=== PATIENT | female | born 1940 | race Caucasian/White ===

== ENCOUNTER 2017-09-13 19:03 | Emergency (ER) | payer BC ==
[~2017-09-13] VITALS: Ht 165.1 cm; Wt 66.2 kg
[2017-09-13 19:37] VITALS: BP 171/70; PULSE 112; RESP 20; TEMP 97.6; O2SAT 98
[2017-09-13] MEDS ORDERED: METF500T PO (20:23)
[2017-09-13] MEDS ORDERED: ATOR10TA15 PO (20:23)
[2017-09-13 20:31] VITALS: BP 146/66; PULSE 102; RESP 18; O2SAT 96
--- NOTE | 2017-09-13 20:41 | PD ---
HPI Chief Complaint: Fall Time Seen by Provider: 20:04 Travel History International Travel<30 days: No Contact w/Intl Traveler<30days: No Traveled to known affect area: No History of Present Illness HPI 76yo F with HLD and DM here with c/o right forehead pain, right wrist pain, right middle finger pain and right knee pain s/p mechanical fall about 1.5 hours ago. Said she tripped on the concrete step and hit her head face first. Denies any LOC or anticoagulation. Denies any dizziness, chest pain, sob, n/v, abdominal pain, focal weakness or numbness. PFSH Past Medical History High Cholesterol: Yes Diabetes: Yes Patient Takes Glucophage: No Tetanus Vaccination: Unknown Influenza Vaccination: Yes ?: Not Menopausal: Yes Past Surgical History Appendectomy: Yes Social History Alcohol Use: No Tobacco Use: Yes (1ppd) Substance Use: No Allergies-Medications (Allergen,Severity, Reaction): Coded Allergies: epinephrine (Verified Allergy, Severe, Tachycardia, 09/13/17) Patient states it makes her heart race and flutter Reported Meds & Prescriptions Reported Meds & Active Scripts Active Tylenol (Acetaminophen) 325 Mg Tab 325 Mg PO Q4H PRN Reported Metformin (Metformin HCl) 500 Mg Tab 500 Mg PO BIDPC Atorvastatin (Atorvastatin Calcium) 10 Mg Tab 10 Mg PO HS Review of Systems Except as stated in HPI: all other systems reviewed are Neg Physical Exam Narrative GENERAL: 76yo F in mild distress. SKIN: Focused skin assessment warm/dry. HEAD: +Right forehead, periorbital swelling. +Abrasion right forehead. No active bleeding or laceration to repair. EYES: Pupils equal and round and reactive to light bilaterally. EOMI. ENT: No septal hematoma or hemotympanum. NECK: No midline cervical spine ttp. CARDIOVASCULAR: Regular rate and rhythm. No murmur appreciated. RESPIRATORY: No accessory muscle use. Clear to auscultation. Breath sounds equal bilaterally. GASTROINTESTINAL: Abdomen soft, non-tender, nondistended. MUSCULOSKELETAL: Right wrist: Mild ttp distal radius. Radial pulse intact. FROM in all digits. Mild swelling in 3rd proximal phalanges, there is a ring she cant take off. RLE: +Abrasion in right knee with some ttp. Distal pulses intact. Sensation intact. NEUROLOGICAL: Awake and alert. No obvious cranial nerve deficits. Motor grossly within normal limits. Normal speech. PSYCHIATRIC: Appropriate mood and affect; insight and judgment normal. Data Data Last Documented VS Vital Signs Date Time Temp Pulse Resp B/P (MAP) Pulse Ox O2 Delivery O2 Flow Rate FiO2 09/13/17 20:31 102 18 146/66 (92) 96 Room Air 09/13/17 19:[address] Brain W/O Iv Contrast(Rout) (09/13/17 ) Ct Cerv Spine W/O Contrast (09/13/17 ) Wrist, Limited (Ap&Lat) (09/13/17 ) Hand, Limited (2vws) (09/13/17 ) Knee, Ltd (1 Or 2vws) (09/13/17 ) Acetaminophen (Tylenol) (09/13/17 20:45) Tetanus/Diphtheria Tox Adult (Tetanus/Di (09/13/17 20:45) Ed Discharge Order (09/13/17 22:52) [facility] Medical Decision Making Medical Screen Exam Complete: Yes Emergency Medical Condition: Yes Differential Diagnosis ICH vs. contusion vs. fracture Narrative Course 76yo F here for evaluation after mechanical fall today. She tripped over the concrete step and denies any dizziness, chest pain or sob. Had no LOC. GCS has been 15. Not on any anticoagulation. No focal neurologic deficits. Does have hematoma in right forehead. CT cervical spine showed no acute disease. Xray right hand showed chronic degenerative change of lateral mid carpal row. Soft tissue swelling at third PIP joint region. CT brain showed no acute intracranial abnormalities. Right periorbital soft tissue swelling. Xray right knee showed minimal narrowing of medial joint space. No fracture. Xray right wrist showed chronic degenerative change at the lateral mid carpal region. Right wrist splint placed for comfort. Pt given acetaminophen which helped with pain. Tetanus updated. Return precautions given. Diagnosis Primary Impression: Head injury Qualified Codes: S09.90XA - Unspecified injury of head, initial encounter Patient Instructions: General Instructions Departure Forms: Tests/Procedures Additional Instructions: Please follow up with your primary care physician in 2-3 days. Return to the ED if you have worsening headache, vomiting, weakness or numbness or other concerning symptoms. Med/Other Pt SpecificInfo: Prescription(s) given Scripts Acetaminophen (Tylenol) 325 Mg Tab 325 MG PO Q4H Y for PAIN SCALE 1 TO 4, #20 TAB 0 Refills Prov: Louise Figueroa DO 09/13/17 Disposition: 01 DISCHARGE HOME Condition: Stable Louise Figueroa DO Sep 13, 2017 20:41
[2017-09-13] MEDS ORDERED: TETANUS/DIPHTHERIA TOXOID ADULT 0.5 ML VIAL IM ONE (20:45)
[2017-09-13] MEDS ORDERED: ACETAMINOPHEN 325 MG TAB PO ONE (20:45)
--- NOTE | 2017-09-13 22:09 | RADRPT ---
EXAM DATE/TIME: 09/13/2017 20:54 [facility] COMPARISON: No previous studies available for comparison. INDICATIONS : Trauma, fall. Right wrist pain. MEDICAL HISTORY : None. SURGICAL HISTORY : None. ENCOUNTER: Initial ACUITY: 1 day PAIN SCORE: 4/10 LOCATION: Right wrist. FINDINGS: No acute fractures seen. There is joint space narrowing and subchondral sclerosis of the distal scaph oid adjacent to the proximal aspect of the trapezium and trapezoid bones at the lateral mid carpal ro w. 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 Gareth Rivera MD on September 13, 2017 at 22:07 Board Certified Radiologist. This report was verified electronically.
--- NOTE | 2017-09-13 22:10 | RADRPT ---
EXAM DATE/TIME: 09/13/2017 20:54 [facility] COMPARISON: No previous studies available for comparison. INDICATIONS : Trauma, fall. Right knee pain. MEDICAL HISTORY : None. SURGICAL HISTORY : None. ENCOUNTER: Initial ACUITY: 1 day PAIN SCORE: 4/10 LOCATION: Right knee FINDINGS: There is minimal narrowing of the medial joint space. Minimal spurring is seen at the medial tibial plateau. No effusion is seen. No fracture is seen. CONCLUSION: Minimal narrowing of the medial joint space. Gareth Rivera MD on September 13, 2017 at 22:06 Board Certified Radiologist. This report was verified electronically.
--- NOTE | 2017-09-13 22:11 | RADRPT ---
EXAM DATE/TIME: 09/13/2017 20:54 [facility] COMPARISON: No previous studies available for comparison. INDICATIONS : Trauma, fall. Right hand pain. MEDICAL HISTORY : None. SURGICAL HISTORY : None. ENCOUNTER: Initial ACUITY: 1 day PAIN SCORE: 3/10 LOCATION: Right hand, 3rd digit FINDINGS: No acute fracture seen. There is joint space narrowing and subchondral sclerosis between the distal s caphoid and proximal aspect of the trapezium and trapezoid bones of the lateral mid carpal region. Th e bones and joints are otherwise normally aligned. There does appear to be soft tissue swelling at th e third PIP joint region. CONCLUSION: 1. 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 2. Soft tissue swelling at the third PIP joint region. Gareth Rivera MD on September 13, 2017 at 22:08 Board Certified Radiologist. This report was verified electronically.
--- NOTE | 2017-09-13 22:40 | RADRPT ---
EXAM DATE/TIME: 09/13/2017 21:26 [facility] COMPARISON: No previous studies available for comparison. INDICATIONS : Trauma. Fall. RADIATION DOSE: 56.97 CTDIvol (mGy) MEDICAL HISTORY : Diabetes mellitus type 2. SURGICAL HISTORY : None. ENCOUNTER: Initial ACUITY: 1 day PAIN SCALE: 7/10 LOCATION: Right frontal TECHNIQUE: Multiple contiguous axial images were obtained of the head. Using automated exposure control and adj ustment of the mA and/or kV according to patient size, radiation dose was kept as low as reasonably a chievable to obtain optimal diagnostic quality images. DICOM format image data is available electro nically for review and comparison. FINDINGS: CEREBRUM: The ventricles are normal for age. No evidence of midline shift, mass lesion, hemorrhage or acute in farction. No extra-axial fluid collections are seen. POSTERIOR FOSSA: The cerebellum and brainstem are intact. The 4th ventricle is midline. The cerebellopontine angle i s unremarkable. EXTRACRANIAL: The visualized portion of the orbits is intact. There is right periorbital soft tissue swelling. SKULL: The calvaria is intact. No evidence of skull fracture. CONCLUSION: 1. No acute intracranial abnormalities seen. 2. Right periorbital soft tissue swelling. Gareth Rivera MD on September 13, 2017 at 22:38 Board Certified Radiologist. This report was verified electronically.
--- NOTE | 2017-09-13 22:43 | RADRPT ---
EXAM DATE/TIME: 09/13/2017 21:26 [facility] COMPARISON: No previous studies available for comparison. INDICATIONS : Trauma. Fall. RADIATION DOSE: 25.24 CTDIvol (mGy) MEDICAL HISTORY : Diabetes mellitus type 2. SURGICAL HISTORY : None. ENCOUNTER: Initial ACUITY: 1 day PAIN SCALE: 7/10 LOCATION: neck TECHNIQUE: Volumetric scanning of the cervical spine was performed. Multiplanar reconstructions in the sagittal, coronal and oblique axial planes were performed. Using automated exposure control and adjustment o f the mA and/or kV according to patient size, radiation dose was kept as low as reasonably achievable to obtain optimal diagnostic quality images. DICOM format image data is available electronically f or review and comparison. FINDINGS: VERTEBRAE: Normal vertebral body height. ALIGNMENT: No evidence of subluxation. C2-C3: The bony spinal canal is normal in size. No evidence of disc bulge or herniation. The neural forami na are bilaterally patent. C3-C4: The bony spinal canal is normal in size. No evidence of disc bulge or herniation. The neural forami na are bilaterally patent. There is prominent hypertrophic change and possible fusion at the left fac et joint. C4-C5: The bony spinal canal is normal in size. No evidence of disc bulge or herniation. The neural forami na are bilaterally patent. C5-C6: The bony spinal canal is normal in size. No evidence of disc bulge or herniation. The neural forami na are bilaterally patent. C6-C7: The bony spinal canal is normal in size. No evidence of disc bulge or herniation. The neural forami na are bilaterally patent. C7-T1: The bony spinal canal is normal in size. No evidence of disc bulge or herniation. The neural forami na are bilaterally patent. CONCLUSION: No acute disease. Gareth Rivera MD on September 13, 2017 at 22:39 Board Certified Radiologist. This report was verified electronically.
[2017-09-13 22:46] VITALS: RESP 18
[2017-09-13] MEDS ORDERED: TYLE325T PO (22:52)
[2017-09-13 23:00] VITALS: BP 123/80
== END 2017-09-13 23:15 | disposition home or self-care (01) ==
LOC: PHED 19:03
DX: S09.90XA Unspecified injury of head, initial encounter (principal); E11.9 Type 2 diabetes mellitus without complications; E78.00 Pure hypercholesterolemia, unspecified; W01.0XXA Fall on same level from slipping, tripping and stumbling without subsequent striking against object, initial encounter; Z23 Encounter for immunization; Z79.84 Long term (current) use of oral hypoglycemic drugs
CPT/HCPCS: 70450; 72125; 73100; 73120; 73560; 90471; 90714